=== PATIENT | male | born 1990 | race Two or more races ===

== ENCOUNTER 2025-03-26 01:02 | Emergency (ER) | payer OTHER ==
[~2025-03-26] VITALS: Ht 182.9 cm; Wt 111.1 kg
[2025-03-26] MEDS ORDERED: METOCLOPRAMIDE HCL 5 MG/ML VIAL IM STA (02:04)
[2025-03-26] MEDS ORDERED: 0.9 % SODIUM CHLORIDE 500 ML IV STA (02:05)
[2025-03-26] MEDS ORDERED: ONDANSETRON HCL 2 MG/ML VIAL IV STA (02:06)
[2025-03-26] MEDS ORDERED: FAMOtidine 10 MG/ML (4ML VIAL) IV PUSH STA (02:07)
[2025-03-26] MEDS ORDERED: HYOSCYAMINE SULFATE 0.125 MG TAB.SUBL SL ONE (02:15)
== END 2025-03-26 05:04 | disposition home or self-care (01) ==
LOC: ER 01:02
DX: K21.9 Gastro-esophageal reflux disease without esophagitis (principal); R11.10 Vomiting, unspecified